=== PATIENT | male | born 1955 | race Caucasian/White ===

== ENCOUNTER 2017-10-22 16:23 | Emergency (ER) | payer MEDICARE, MEDICAID ==
[~2017-10-22] VITALS: Ht 182.9 cm; Wt 102.1 kg
[2017-10-22] MEDS ORDERED: LIDOCAINE 1% (LOCAL ANESTH.) PF 5ml SDV ONE (18:43)
[2017-10-22] MEDS ORDERED: TETANUS-DIPTH-ACEL PERTUSSIS 0.5ML SYRG IM ONE (18:45)
[2017-10-22 19:30] VITALS: BP 135/84
[2017-10-22] MEDS ORDERED: LIDOCAINE 1% (LOCAL ANESTH.) PF 5ml SDV IN ONE (20:00)
== END 2017-10-22 20:22 | disposition home or self-care (01) ==
LOC: EDBD 16:23 → ER 16:23
DX: S01.01XA Laceration without foreign body of scalp, initial encounter (principal); G40.909 Epilepsy, unspecified, not intractable, without status epilepticus; E78.5 Hyperlipidemia, unspecified; W18.39XA Other fall on same level, initial encounter; Y93.54 Activity, bowling; Y92.89 Other specified places as the place of occurrence of the external cause; Y99.8 Other external cause status
CPT/HCPCS: 12002; 70450; 90471; 90715

== ENCOUNTER 2018-03-06 17:13 | Inpatient (IN) | payer MEDICARE, MEDICAID ==
[~2018-03-06] VITALS: Ht 182.9 cm; Wt 80.9 kg
[2018-03-06 19:14] LABS: Basophils # (auto) 0.1 uL; Basophils % (auto) 0.8 % (0.0-2.0); Eosinophils # (auto) 0.1 uL; Eosinophils % (auto) 2.2 % (0.0-7.0); Hematocrit 44.5 % (41.0-53.0); Hemoglobin 15.2 g/dL (13.5-17.5); Lymphocytes # (auto) 1.6 uL; Lymphocytes % (auto) 24.6 % (10.0-50.0); Mean Corpuscular Hemoglobin 33.4 pg (28.0-32.0); Mean Corpuscular Hgb Conc. 34.2 g/dL (32.0-36.0); Mean Corpuscular Volume 97.5 fL (80.0-100.0); Monocytes # (auto) 0.5 uL; Monocytes % (auto) 8.3 % (0.0-12.0); Neutrophils # (auto) 4.1 uL; Neutrophils % (auto) 64.1 % (37.0-80.0); Nucleated Red Blood Cells % 0.1 %; Platelet Count (auto) 222 10^3/uL (140-450); Red Blood Cells 4.57 10^6/uL (4.5-5.90); Red Cell Distribution Width 13.7 % (11.8-14.3); White Blood Cell 6.5 10^3/uL (4.4-10.8)
[2018-03-06 19:32] LABS: Alanine Aminotransferase 23 U/L (16-61); Albumin 3.7 g/dL (3.4-5.0); Alkaline Phosphatase 61 U/L (45-117); Anion Gap 4 (5-15); Aspartate Aminotransferase 12 U/L (15-37); BUN/Creatinine Ratio 26.2; Bilirubin, Total 0.3 mg/dL (0.2-1.0); Blood Urea Nitrogen 17 mg/dL (7-18); Calcium 8.5 mg/dL (8.5-10.1); Carbon Dioxide 31 mmol/L (21-32); Chloride 104 mmol/L (98-107); GFR African American 161 mL/min; GFR Non-African American 133 mL/min; Glucose 114 mg/dL (74-106); Magnesium 2.4 mg/dL (1.6-2.6); Potassium 4.1 mmol/L (3.5-5.1); Sodium 139 mmol/L (136-145); Total Protein 7.7 g/dL (6.4-8.2)
[2018-03-06 20:09] LABS: Phenytoin (Dilantin) 25.3 ug/mL (10-20)
[2018-03-06 20:40] LABS: Urine Bacteria NONE SEEN /hpf (None Seen); Urine Blood Negative /uL (Negative); Urine Mucus FEW (None Seen); Urine Specific Gravity 1.027 (1.001-1.035); Urine WBC <1 /hpf (0 - 3)
[2018-03-06] MEDS ORDERED: NITROGLYCERIN 0.4 MG SL TAB SL PRN (21:00)
[2018-03-06] MEDS ORDERED: guaiFENesin-DM 100/10mg/5ml SYR PO PRN (21:00)
[2018-03-06] MEDS ORDERED: HYDROcodone-ACET 5/325MG TAB PO PRN (21:00)
[2018-03-06] MEDS ORDERED: ACETAMINOPHEN 325 MG TAB PO PRN (21:00)
[2018-03-06] MEDS ORDERED: ONDANSETRON HCL 4 MG/2 ML VIAL IV PRN (21:00)
[2018-03-06] MEDS ORDERED: TEMAZEPAM 15 MG CAP PO PRN (21:00)
[2018-03-06] MEDS ORDERED: MORPHINE SULF INJ 2 MG/ML SYRINGE 1ML IV PRN (21:00)
[2018-03-06] MEDS: SODIUM CHLORIDE 0.9% 1,000 ML IV SCH (21:52)
[2018-03-06] MEDS: carBAMazepine 200 MG TAB PO SCH (21:52)
[2018-03-06] MEDS: FAMOTIDINE 20 MG TAB PO SCH (21:52)
[2018-03-06] MEDS: ATORVASTATIN 20 MG TAB PO SCH (21:52)
[2018-03-06] MEDS: NEOMYCIN-BACITRACIN-POLYM UNITDOSE PKG TOP OINT TOP SCH (22:58)
[2018-03-07 05:00] VITALS: BP 128/77
[2018-03-07 07:14] LABS: Basophils # (auto) 0 uL; Basophils % (auto) 0.6 % (0.0-2.0); Eosinophils # (auto) 0.2 uL; Eosinophils % (auto) 4.5 % (0.0-7.0); Hematocrit 41.1 % (41.0-53.0); Hemoglobin 14.1 g/dL (13.5-17.5); Lymphocytes # (auto) 2.2 uL; Lymphocytes % (auto) 43.6 % (10.0-50.0); Mean Corpuscular Hemoglobin 33.3 pg (28.0-32.0); Mean Corpuscular Hgb Conc. 34.3 g/dL (32.0-36.0); Mean Corpuscular Volume 97.3 fL (80.0-100.0); Monocytes # (auto) 0.4 uL; Monocytes % (auto) 7.8 % (0.0-12.0); Neutrophils # (auto) 2.2 uL; Neutrophils % (auto) 43.5 % (37.0-80.0); Platelet Count (auto) 203 10^3/uL (140-450); Red Blood Cells 4.22 10^6/uL (4.5-5.90); Red Cell Distribution Width 13.6 % (11.8-14.3); White Blood Cell 5.1 10^3/uL (4.4-10.8)
[2018-03-07 07:28] LABS: Albumin 3.1 g/dL (3.4-5.0); Calcium 8.3 mg/dL (8.5-10.1); Potassium 3.8 mmol/L (3.5-5.1)
[2018-03-07 07:31] LABS: Bilirubin, Total 0.3 mg/dL (0.2-1.0); Total Protein 6.7 g/dL (6.4-8.2)
[2018-03-07 08:00] VITALS: BP 148/82
[2018-03-07] MEDS: FAMOTIDINE 20 MG TAB PO SCH ×2 (08:38→21:16)
[2018-03-07] MEDS: carBAMazepine 200 MG TAB PO SCH ×2 (08:39→21:15)
[2018-03-07 12:00] VITALS: BP 131/85
[2018-03-07] MEDS: SODIUM CHLORIDE 0.9% 1,000 ML IV SCH (15:30)
[2018-03-07 16:00] VITALS: BP 132/70
[2018-03-07] MEDS: NEOMYCIN-BACITRACIN-POLYM UNITDOSE PKG TOP OINT TOP SCH (16:09)
[2018-03-07] MEDS ORDERED: CARB200T4 (17:59)
[2018-03-07] MEDS ORDERED: ATOR20TA50 (17:59)
[2018-03-07] MEDS ORDERED: DIVA500T59 (17:59)
[2018-03-07] MEDS ORDERED: PHE100C (17:59)
[2018-03-07] MEDS: ATORVASTATIN 20 MG TAB PO SCH (21:16)
[2018-03-07 22:00] VITALS: BP 137/89
[2018-03-08] MEDS: SODIUM CHLORIDE 0.9% 1,000 ML IV SCH ×2 (00:41→13:00)
[2018-03-08 05:40] VITALS: BP 148/88
[2018-03-08] MEDS: carBAMazepine 200 MG TAB PO SCH ×3 (06:48→22:47)
[2018-03-08 09:00] VITALS: BP 146/68
[2018-03-08] MEDS: NEOMYCIN-BACITRACIN-POLYM UNITDOSE PKG TOP OINT TOP SCH (10:00)
[2018-03-08] MEDS: FAMOTIDINE 20 MG TAB PO SCH ×2 (10:00→22:00)
[2018-03-08 13:00] VITALS: BP 161/79
[2018-03-08 16:58] VITALS: BP 146/79
[2018-03-08 22:40] VITALS: BP 141/75
[2018-03-08] MEDS ORDERED: carBAMazepine 200 MG TAB PO ONE ×2 (22:44)
[2018-03-08] MEDS: ATORVASTATIN 20 MG TAB PO SCH (22:47)
[2018-03-09] MEDS: SODIUM CHLORIDE 0.9% 1,000 ML IV SCH (02:20)
[2018-03-09 05:15] VITALS: BP 148/85
[2018-03-09] MEDS: carBAMazepine 200 MG TAB PO SCH (06:58)
[2018-03-09 08:28] VITALS: BP 127/82
== END 2018-03-09 08:30 | disposition home or self-care (01) | DRG 91 ==
LOC: EDBD 17:13 → ER 17:13 → TELE 17:14 → TELE-CENTR 22:50
PROVIDERS: ADMIT Nurse Practitioner; ATTEND Family Medicine
DX: R26.81 Unsteadiness on feet (principal); G92 Toxic encephalopathy; T42.0X5A Adverse effect of hydantoin derivatives, initial encounter; E78.00 Pure hypercholesterolemia, unspecified; F06.8 Other specified mental disorders due to known physiological condition; G31.9 Degenerative disease of nervous system, unspecified; G40.909 Epilepsy, unspecified, not intractable, without status epilepticus; Z79.899 Other long term (current) drug therapy; Z88.0 Allergy status to penicillin; Z87.820 Personal history of traumatic brain injury; Y92.89 Other specified places as the place of occurrence of the external cause
CPT/HCPCS: 36415; 70450; 71045; 80053; 80156; 80164; 80185; 81001; 83735; 84484; 85025; 93005; 94761

== ENCOUNTER 2018-06-04 04:00 | Emergency (ER) | payer MEDICARE, MEDICAID ==
[~2018-06-04] VITALS: Ht 177.8 cm; Wt 81.6 kg
[~2018-06-04 04:00] MED LIST: ATOR20TA50; CARB200T4; DIVA500T59; PHE100C
[2018-06-04 05:16] LABS: Basophils # (auto) 0 uL; Basophils % (auto) 0.4 % (0.0-2.0); Eosinophils # (auto) 0 uL; Eosinophils % (auto) 0.7 % (0.0-7.0); Hematocrit 43.5 % (41.0-53.0); Hemoglobin 14.8 g/dL (13.5-17.5); Lymphocytes # (auto) 1.3 uL; Lymphocytes % (auto) 19.1 % (10.0-50.0); Mean Corpuscular Hemoglobin 33.6 pg (28.0-32.0); Mean Corpuscular Hgb Conc. 34.1 g/dL (32.0-36.0); Mean Corpuscular Volume 98.6 fL (80.0-100.0); Monocytes # (auto) 0.4 uL; Monocytes % (auto) 6.4 % (0.0-12.0); Neutrophils # (auto) 5.1 uL; Neutrophils % (auto) 73.4 % (37.0-80.0); Nucleated Red Blood Cells % 0.1 %; Platelet Count (auto) 197 10^3/uL (140-450); Red Blood Cells 4.41 10^6/uL (4.5-5.90); Red Cell Distribution Width 12.8 % (11.8-14.3); White Blood Cell 6.9 10^3/uL (4.4-10.8)
[2018-06-04 05:32] LABS: INR 0.99 (0.9-1.15); Partial Thromboplastin Time 22.1 sec (23.78-33.04); Prothrombin Time 10.6 sec (9.27-12.13)
[2018-06-04 05:34] LABS: Albumin 3.5 g/dL (3.4-5.0); Anion Gap 9 (5-15); Blood Alcohol < 3.0 mg/dL (0-5); Blood Urea Nitrogen 19 mg/dL (7-18); Calcium 8.5 mg/dL (8.5-10.1); Carbon Dioxide 24 mmol/L (21-32); Chloride 104 mmol/L (98-107); Glucose 125 mg/dL (74-106); Magnesium 2.4 mg/dL (1.6-2.6); Potassium 3.8 mmol/L (3.5-5.1); Sodium 137 mmol/L (136-145)
[2018-06-04 05:42] LABS: Alanine Aminotransferase 21 U/L (16-61); Alkaline Phosphatase 61 U/L (45-117); Aspartate Aminotransferase 19 U/L (15-37); BUN/Creatinine Ratio 38.8; Bilirubin, Total 0.4 mg/dL (0.2-1.0); GFR African American 223 mL/min; GFR Non-African American 184 mL/min; Total Protein 7.3 g/dL (6.4-8.2)
[2018-06-04 10:07] VITALS: BP 137/87
== END 2018-06-04 10:25 | disposition short-term general hospital (02) ==
LOC: EDBD 04:00 → ER 04:07
DX: I63.412 Cerebral infarction due to embolism of left middle cerebral artery (principal); G40.909 Epilepsy, unspecified, not intractable, without status epilepticus; R62.59 Other lack of expected normal physiological development in childhood; E78.5 Hyperlipidemia, unspecified; R42 Dizziness and giddiness
CPT/HCPCS: 36415; 51702; 70450; 71045; 80053; 80185; 80320; 82962; 83735; 84484; 85025; 85610; 85730; 87040; 93005; 94761